=== PATIENT | male | born 1980 | race Caucasian/White ===

== ENCOUNTER 2020-09-25 03:47 | Emergency (ER) | payer SELFPAY ==
[~2020-09-25] VITALS: Ht 180.3 cm; Wt 77.1 kg
[~2020-09-25 03:47] MED LIST: IBU800 MG PO; NORCO 5-325 TA1 EACH PO; PENICILLIN VK500 MG PO
== END 2020-09-25 06:54 | disposition home or self-care (01) ==
LOC: ED 03:47
DX: S05.11XA Contusion of eyeball and orbital tissues, right eye, initial encounter (principal); Z79.2 Long term (current) use of antibiotics; Z79.899 Other long term (current) drug therapy; F17.200 Nicotine dependence, unspecified, uncomplicated; W22.8XXA Striking against or struck by other objects, initial encounter; Y93.89 Activity, other specified; Y92.89 Other specified places as the place of occurrence of the external cause; Y99.8 Other external cause status

== ENCOUNTER 2020-10-09 01:54 | Emergency (ER) | payer SELFPAY ==
[2020-10-09 03:16] LABS: BASO % 0.3 % (0.0-1.0); EOS # 0.1 10*3/uL (0.0-0.4); EOS % 0.6 % (1.0-4.0); HEMATOCRIT 40.8 % (42.0-52.0); LYMPH # 0.8 10*3/uL (1.3-4.4); MEAN CELL VOLUME 90.5 fl (80.0-94.0); MEAN CORPUSCULAR HGB 30.8 pg (27.0-31.0); MEAN CORPUSCULAR HGB CONC 34.1 g/dl (33.0-37.0); MEAN PLATELET VOLUME 9.8 fl (9.6-12.3); MONO # 0.8 10*3/uL (0.1-1.0); MONO % 6.7 % (3.0-9.0); NEUT % 85.1 % (47.0-73.0); PLATELET COUNT AUTOMATED 282 10*3/uL (130-400); RED BLOOD COUNT 4.51 10*6/uL (4.50-5.90); RED CELL DISTRI WIDTH 12.3 % (0-14.5); WHITE BLOOD COUNT 11.7 10*3/uL (4.8-10.8)
[2020-10-09 03:31] LABS: ALBUMIN 3.8 gm/dl (3.1-4.5); ALKALINE PHOSPHATASE 136 U/L (45-117); BUN 12 mg/dl (7-24); CHLORIDE 101 mmol/L (98-107); CREATININE 1.16 mg/dL (0.70-1.30); POTASSIUM 4.5 mmol/L (3.5-5.1); SGOT/AST 75 IU/L (3-35); SGPT/ALT 113 U/L (12-78); SODIUM 134 mmol/L (136-145); TOTAL PROTEIN 7.9 gm/dL (6.4-8.2)
[2020-10-09] MEDS ORDERED: CLINDAMYCIN HC300 MG PO (03:53)
[2020-10-09] MEDS ORDERED: LEVOFLOXACIN750 M2 PO (03:53)
== END 2020-10-09 03:51 | disposition home or self-care (01) ==
LOC: ED 01:54
PROVIDERS: Hospitalist
DX: L02.512 Cutaneous abscess of left hand (principal)

== ENCOUNTER 2020-10-10 04:57 | Emergency (ER) | payer SELFPAY ==
[~2020-10-10 04:57] MED LIST changes: +CLINDAMYCIN HC300 MG PO; +LEVOFLOXACIN750 M2 PO
[2020-10-10 05:50] LABS: BASO % 0.4 % (0.0-1.0); EOS # 0.2 10*3/uL (0.0-0.4); EOS % 2.2 % (1.0-4.0); HEMATOCRIT 41.9 % (42.0-52.0); LYMPH # 1.9 10*3/uL (1.3-4.4); MEAN CELL VOLUME 90.3 fl (80.0-94.0); MEAN CORPUSCULAR HGB 30.6 pg (27.0-31.0); MEAN CORPUSCULAR HGB CONC 33.9 g/dl (33.0-37.0); MEAN PLATELET VOLUME 9.8 fl (9.6-12.3); MONO # 1.1 10*3/uL (0.1-1.0); MONO % 9.4 % (3.0-9.0); NEUT # 7.9 10*3/uL (2.3-7.9); NEUT % 70.6 % (47.0-73.0); PLATELET COUNT AUTOMATED 283 10*3/uL (130-400); RED BLOOD COUNT 4.64 10*6/uL (4.50-5.90); RED CELL DISTRI WIDTH 12.7 % (0-14.5); WHITE BLOOD COUNT 11.1 10*3/uL (4.8-10.8)
[2020-10-10 06:05] LABS: ALBUMIN 3.8 gm/dl (3.1-4.5); ALKALINE PHOSPHATASE 135 U/L (45-117); BUN 11 mg/dl (7-24); CHLORIDE 101 mmol/L (98-107); CREATININE 1.05 mg/dL (0.70-1.30); POTASSIUM 4.1 mmol/L (3.5-5.1); SGOT/AST 62 IU/L (3-35); SGPT/ALT 99 U/L (12-78); SODIUM 135 mmol/L (136-145)
== END 2020-10-10 08:19 | disposition left against medical advice (07) ==
LOC: ED 04:57
PROVIDERS: Emergency Medicine
DX: M79.645 Pain in left finger(s) (principal); Z79.899 Other long term (current) drug therapy

== ENCOUNTER 2020-10-30 11:19 | Emergency (ER) | payer OTHER ==
[~2020-10-30] VITALS: Ht 182.8 cm; Wt 86.2 kg
[2020-10-30 13:54] LABS: BASO % 0.5 % (0.0-1.0); EOS # 0.1 10*3/uL (0.0-0.4); EOS % 2.2 % (1.0-4.0); HEMATOCRIT 41.3 % (42.0-52.0); LYMPH # 0.9 10*3/uL (1.3-4.4); LYMPH % 14.5 % (27.0-41.0); MEAN CORPUSCULAR HGB CONC 33.7 g/dl (33.0-37.0); MEAN PLATELET VOLUME 10.3 fl (9.6-12.3); MONO # 0.4 10*3/uL (0.1-1.0); MONO % 6.3 % (3.0-9.0); NEUT # 4.9 10*3/uL (2.3-7.9); NEUT % 76.3 % (47.0-73.0); PLATELET COUNT AUTOMATED 277 10*3/uL (130-400); RED BLOOD COUNT 4.49 10*6/uL (4.50-5.90); RED CELL DISTRI WIDTH 12.5 % (0-14.5); WHITE BLOOD COUNT 6.5 10*3/uL (4.8-10.8)
[2020-10-30 14:02] LABS: ALBUMIN 3.4 gm/dl (3.1-4.5); ALKALINE PHOSPHATASE 123 U/L (45-117); BUN 16 mg/dl (7-24); CHLORIDE 104 mmol/L (98-107); CREATININE 0.93 mg/dL (0.70-1.30); POTASSIUM 3.9 mmol/L (3.5-5.1); SGOT/AST 39 IU/L (3-35); SGPT/ALT 53 U/L (12-78); SODIUM 135 mmol/L (136-145); TOTAL PROTEIN 7.5 gm/dL (6.4-8.2)
[2020-10-30] MEDS ORDERED: ZOFRAN4 MG PO (14:12)
== END 2020-10-30 14:34 | disposition home or self-care (01) ==
LOC: ED 11:19
PROVIDERS: Student in an Organized Health Care Education/Training Program
DX: A08.4 Viral intestinal infection, unspecified (principal); R11.2 Nausea with vomiting, unspecified; Z79.2 Long term (current) use of antibiotics

== ENCOUNTER 2020-11-03 16:19 | Emergency (ER) | payer OTHER ==
[~2020-11-03 16:19] MED LIST changes: +ZOFRAN4 MG PO
[2020-11-03] MEDS ORDERED: BUPROPION75 MG PO (16:27)
== END 2020-11-03 18:00 | disposition home or self-care (01) ==
LOC: ED 16:19
DX: F43.21 Adjustment disorder with depressed mood (principal); F11.90 Opioid use, unspecified, uncomplicated; Z79.899 Other long term (current) drug therapy; Z88.8 Allergy status to other drugs, medicaments and biological substances

== ENCOUNTER 2021-01-05 02:49 | Emergency (ER) | payer OTHER ==
[~2021-01-05] VITALS: Ht 182.8 cm; Wt 81.6 kg
[~2021-01-05 02:49] MED LIST changes: +BUPROPION75 MG PO
[2021-01-05 03:42] LABS: BASO % 0.7 % (0.0-1.0); EOS # 0.1 10*3/uL (0.0-0.4); HEMATOCRIT 39.9 % (42.0-52.0); LYMPH # 1.6 10*3/uL (1.3-4.4); LYMPH % 28.6 % (27.0-41.0); MEAN CELL VOLUME 90.1 fl (80.0-94.0); MEAN CORPUSCULAR HGB CONC 33.3 g/dl (33.0-37.0); MEAN PLATELET VOLUME 9.8 fl (9.6-12.3); MONO # 0.5 10*3/uL (0.1-1.0); MONO % 8.5 % (3.0-9.0); NEUT # 3.3 10*3/uL (2.3-7.9); PLATELET COUNT AUTOMATED 288 10*3/uL (130-400); RED BLOOD COUNT 4.43 10*6/uL (4.50-5.90); RED CELL DISTRI WIDTH 12.9 % (0-14.5); WHITE BLOOD COUNT 5.6 10*3/uL (4.8-10.8)
[2021-01-05 04:20] LABS: ALBUMIN 3.8 gm/dl (3.1-4.5); ALKALINE PHOSPHATASE 113 U/L (45-117); BUN 20 mg/dl (7-24); CHLORIDE 107 mmol/L (98-107); CREATININE 1.08 mg/dL (0.70-1.30); POTASSIUM 3.3 mmol/L (3.5-5.1); SGOT/AST 62 IU/L (3-35); SGPT/ALT 97 U/L (12-78); SODIUM 139 mmol/L (136-145); TOTAL PROTEIN 7.9 gm/dL (6.4-8.2)
[2021-01-05 04:21] LABS: TROPONIN I < 0.015 ng/ml (<0.045)
== END 2021-01-05 10:02 | disposition home or self-care (01) ==
LOC: ED 02:49
PROVIDERS: Emergency Medicine
DX: T40.601A Poisoning by unspecified narcotics, accidental (unintentional), initial encounter (principal); Z88.8 Allergy status to other drugs, medicaments and biological substances; Z79.899 Other long term (current) drug therapy; Y92.810 Car as the place of occurrence of the external cause

== ENCOUNTER 2021-05-25 05:20 | Emergency (ER) | payer OTHER ==
[~2021-05-25] VITALS: Ht 182.8 cm; Wt 81.6 kg
[2021-05-25] MEDS ORDERED: SEPTDS PO (05:35)
== END 2021-05-25 05:46 | disposition home or self-care (01) ==
LOC: ED 05:20
DX: L72.3 Sebaceous cyst (principal); Z79.899 Other long term (current) drug therapy

== ENCOUNTER 2021-06-12 21:52 | Emergency (ER) | payer OTHER ==
[~2021-06-12 21:52] MED LIST changes: +SEPTDS PO
== END 2021-06-12 22:03 | disposition left against medical advice (07) ==
LOC: ED 21:52
DX: Z53.21 Procedure and treatment not carried out due to patient leaving prior to being seen by health care provider (principal)

== ENCOUNTER 2022-02-21 01:38 | Inpatient (IN) | payer OTHER ==
[~2022-02-21] VITALS: Ht 183 cm; Wt 86.0 kg
[2022-02-21] VITALS (10 sets, daily range): BP systolic 96–146; BP diastolic 53–77
[2022-02-21] MEDS ORDERED: TRAZODONE100 MG PO (01:44)
[2022-02-21] MEDS ORDERED: HYDROXYZINE PAM25 M1 PO (01:44)
[2022-02-21] MEDS ORDERED: SERTRALINE HYD100 MG PO (01:44)
[2022-02-21] MEDS ORDERED: OXCARBAZEPINE300 M1 PO (01:44)
[2022-02-21] MEDS ORDERED: SUBOXONE 8 MG-1 EACH SL (01:45)
[2022-02-21 02:21] LABS: BASO # 0.1 10*3/uL (0.0-0.1); BASO % 0.6 % (0.0-1.0); EOS # 0.1 10*3/uL (0.0-0.4); EOS % 0.6 % (1.0-4.0); HEMATOCRIT 41.4 % (42.0-52.0); LYMPH # 1.3 10*3/uL (1.3-4.4); LYMPH % 9.2 % (27.0-41.0); MEAN CELL VOLUME 85.5 fl (80.0-94.0); MEAN CORPUSCULAR HGB 29.3 pg (27.0-31.0); MEAN CORPUSCULAR HGB CONC 34.3 g/dl (33.0-37.0); MEAN PLATELET VOLUME 10.1 fl (9.6-12.3); MONO # 0.9 10*3/uL (0.1-1.0); MONO % 6.7 % (3.0-9.0); NEUT # 11.6 10*3/uL (2.3-7.9); NEUT % 82.6 % (47.0-73.0); PLATELET COUNT AUTOMATED 253 10*3/uL (130-400); RED BLOOD COUNT 4.84 10*6/uL (4.50-5.90); WHITE BLOOD COUNT 14.1 10*3/uL (4.8-10.8)
[2022-02-21 02:42] LABS: ACETAMINOPHEN (TYLENOL) < 5.0 ug/ml (10-30); ALKALINE PHOSPHATASE 145 U/L (45-117); BUN 33 mg/dl (7-24); CHLORIDE 100 mmol/L (98-107); ETHYL ALCOHOL < 3.0 mg/dl (<3); POTASSIUM 3.4 mmol/L (3.5-5.1); SGOT/AST 129 IU/L (3-35); SGPT/ALT 82 U/L (12-78); SODIUM 135 mmol/L (136-145); TOTAL PROTEIN 8.3 gm/dL (6.4-8.2)
[2022-02-21 05:12] LABS: BILIRUBIN 1+ (Negative); BLOOD 3+ (Negative); CLARITY Cloudy (Clear); COLOR Dark Yellow (Yellow); GLUCOSE Negative (Negative); KETONE Trace (Negative); LEUKO ESTERASE Trace (Negative); NITRITE Negative (Negative); SPECIFIC GRAVITY >= 1.030 (1.001-1.030)
[2022-02-21 05:20] LABS: URINE AMPHETAMINES > 1000 (1000ng/ml); URINE BARBITURATES < 200 (200ng/ml); URINE BENZODIAZEPINES > 200 (200ng/ml); URINE CANNABINOIDS (THC) > 50 (50ng/ml); URINE COCAINE < 300 (300ng/ml); URINE METHADONE < 300 (300ng/ml); URINE OPIATES > 300 (300ng/ml)
[2022-02-21 05:22] LABS: BACTERIA 1+; MUCOUS 1+; RBC 16-20 rbc/hpf (0-2)
[2022-02-21 05:24] LABS: URINE PHENCYCLIDINE < 25 (25ng/ml)
[2022-02-21] MEDS ORDERED: ATARAX,VISTARIL50 MG PO (06:30)
[2022-02-22] VITALS: BP 103/58
[2022-02-22 05:59] LABS: ALKALINE PHOSPHATASE 117 U/L (45-117); BUN 25 mg/dl (7-24); CHLORIDE 114 mmol/L (98-107); CREATININE 0.84 mg/dL (0.70-1.30); POTASSIUM 3.6 mmol/L (3.5-5.1); SGOT/AST 101 IU/L (3-35); SGPT/ALT 74 U/L (12-78); SODIUM 144 mmol/L (136-145); TOTAL PROTEIN 5.7 gm/dL (6.4-8.2)
[2022-02-22 06:12] LABS: CPK 1196 U/L (39-308)
[2022-02-22 06:46] LABS: BASO % 0.8 % (0.0-1.0); EOS # 0.1 10*3/uL (0.0-0.4); EOS % 3.3 % (1.0-4.0); HEMATOCRIT 35.8 % (42.0-52.0); LYMPH # 1.3 10*3/uL (1.3-4.4); LYMPH % 33.4 % (27.0-41.0); MEAN CORPUSCULAR HGB 29.3 pg (27.0-31.0); MEAN PLATELET VOLUME 11.2 fl (9.6-12.3); MONO # 0.4 10*3/uL (0.1-1.0); MONO % 9.4 % (3.0-9.0); NEUT # 2.1 10*3/uL (2.3-7.9); NEUT % 52.8 % (47.0-73.0); PLATELET COUNT AUTOMATED 190 10*3/uL (130-400); RED BLOOD COUNT 4.03 10*6/uL (4.50-5.90); RED CELL DISTRI WIDTH 12.2 % (0-14.5); WHITE BLOOD COUNT 3.9 10*3/uL (4.8-10.8)
[2022-02-22 06:55] LABS: MEAN CELL VOLUME 88.8 fl (80.0-94.0)
[2022-02-22 08:00] VITALS: BP 94/46
[2022-02-22 09:00] VITALS: BP 98/56
[2022-02-22 12:00] VITALS: BP 103/56
[2022-02-22 16:00] VITALS: BP 99/55
[2022-02-22 20:00] VITALS: BP 111/58
[2022-02-23] VITALS: BP 113/66
[2022-02-23 06:23] LABS: BASO % 0.6 % (0.0-1.0); EOS # 0.1 10*3/uL (0.0-0.4); EOS % 3.7 % (1.0-4.0); HEMATOCRIT 36.3 % (42.0-52.0); LYMPH # 1.5 10*3/uL (1.3-4.4); MEAN CELL VOLUME 90.8 fl (80.0-94.0); MEAN CORPUSCULAR HGB 29.8 pg (27.0-31.0); MEAN CORPUSCULAR HGB CONC 32.8 g/dl (33.0-37.0); MEAN PLATELET VOLUME 11.2 fl (9.6-12.3); MONO # 0.4 10*3/uL (0.1-1.0); MONO % 9.9 % (3.0-9.0); NEUT # 1.5 10*3/uL (2.3-7.9); NEUT % 43.8 % (47.0-73.0); PLATELET COUNT AUTOMATED 187 10*3/uL (130-400); RED CELL DISTRI WIDTH 12.5 % (0-14.5); WHITE BLOOD COUNT 3.5 10*3/uL (4.8-10.8)
[2022-02-23 06:41] LABS: BUN 17 mg/dl (7-24); CHLORIDE 116 mmol/L (98-107); POTASSIUM 4.1 mmol/L (3.5-5.1); SODIUM 148 mmol/L (136-145)
[2022-02-23 08:00] VITALS: BP 111/66
[2022-02-23 14:26] LABS: BUN 15 mg/dl (7-24); CHLORIDE 113 mmol/L (98-107); POTASSIUM 3.9 mmol/L (3.5-5.1); SODIUM 145 mmol/L (136-145)
== END 2022-02-23 15:08 | disposition home or self-care (01) | DRG 557 ==
LOC: ED 01:38 → ICCU 06:23 → EDHOLD 06:23 → ICCU 07:08 → 4E 02-22 22:18
PROVIDERS: Emergency Medicine; Internal Medicine; Student in an Organized Health Care Education/Training Program; ADMIT Student in an Organized Health Care Education/Training Program; ATTEND Student in an Organized Health Care Education/Training Program
DX: M62.82 Rhabdomyolysis (principal); N17.0 Acute kidney failure with tubular necrosis; R65.11 Systemic inflammatory response syndrome (SIRS) of non-infectious origin with acute organ dysfunction; E87.1 Hypo-osmolality and hyponatremia; R45.851 Suicidal ideations; F43.21 Adjustment disorder with depressed mood; F19.10 Other psychoactive substance abuse, uncomplicated; R73.9 Hyperglycemia, unspecified; E80.6 Other disorders of bilirubin metabolism; F15.10 Other stimulant abuse, uncomplicated; F17.210 Nicotine dependence, cigarettes, uncomplicated; R74.01 Elevation of levels of liver transaminase levels; F11.10 Opioid abuse, uncomplicated; Z88.8 Allergy status to other drugs, medicaments and biological substances; Z71.6 Tobacco abuse counseling

== ENCOUNTER 2024-10-24 17:46 | Emergency (ER) | payer OTHER ==
[~2024-10-24] VITALS: Ht 180.3 cm; Wt 86.2 kg
[~2024-10-24 17:46] MED LIST changes: +ATARAX,VISTARIL50 MG PO; +HYDROXYZINE PAM25 M1 PO; +OXCARBAZEPINE300 M1 PO; +SERTRALINE HYD100 MG PO; +SUBOXONE 8 MG-1 EACH SL; +TRAZODONE100 MG PO
[2024-10-24] MEDS ORDERED: PENICILLIN VK500 MG PO (18:31)
[2024-10-24] MEDS ORDERED: Lidocaine Hydrochloride 15 ML UDC PO STA (18:31)
[2024-10-24] MEDS ORDERED: BENZOCAINE 20% 11.9 GM GEL T STA (18:31)
[2024-10-24] MEDS ORDERED: PENICILLIN V POTASSIUM 500 MG TAB PO ONE (18:35)
[2024-10-24] MEDS ORDERED: Acetaminophen/Hydrocodone 5 MG/325 MG TABLET PO ONE (18:35)
== END 2024-10-24 18:33 | disposition home or self-care (01) ==
LOC: ED 17:46
DX: K04.7 Periapical abscess without sinus (principal); F17.200 Nicotine dependence, unspecified, uncomplicated; Z88.8 Allergy status to other drugs, medicaments and biological substances